=== PATIENT | male | born 1950 | race Hispanic/Latino ===

== ENCOUNTER 2020-09-25 08:03 | Day surgery (SDC) | payer MEDICARE ==
[2020-09-22 10:15] LABS: BASOPHILS % (AUTO) 0.5 % (0.0-5.0); EOSINOPHILS % (AUTO) 2.1 % (0.0-8.0); HEMATOCRIT 39.2 % (42-54); LYMPHOCYTES % (AUTO) 23.5 % (21.0-51.0); MEAN CORPUSCULAR HEMOGLOBIN 29.2 pg (27.0-33.0); MEAN CORPUSCULAR HGB CONC 32.9 g/dL (32.0-36.0); MEAN CORPUSCULAR VOLUME 88.7 fL (79-99); MONOCYTES % (AUTO) 8.6 % (3.0-13.0); NEUTROPHILS % (AUTO) 64.8 % (40.0-77.0); PLATELET COUNT (AUTO) 245 K/uL (130-400); RED BLOOD CELL COUNT(AUTO) 4.42 MIL/uL (4.50-6.20); RED CELL DISTRIBUTION WIDTH 13.3 % (11.0-15.5)
[2020-09-22 10:16] LABS: APPEARANCE,URINE Clear (CLEAR); BILIRUBIN,URINE Negative (NEGATIVE); COLOR,URINE Yellow (YELLOW); GLUCOSE, URINE (UA) Negative (NEGATIVE); KETONES,URINE Negative (NEGATIVE); LEUKOCYTE ESTERASE ,URINE Negative (NEGATIVE); NITRATE,URINE Negative (NEGATIVE); OCCULT BLOOD,URINE Negative (NEGATIVE); PROTEIN,URINE Negative (NEGATIVE)
[2020-09-22 10:22] LABS: CREATININE 1.1 mg/dL (0.5-1.5); POTASSIUM 4.3 mmol/L (3.5-5.1)
[2020-09-22 10:24] LABS: INR 1.01 (0.85-1.15); PARTIAL THROMBOPLASTIN TIME 27.5 SEC (26.3-35.5); PROTHROMBIN TIME 10.9 SEC (9.6-11.6)
[2020-09-22 16:52] VITALS: BP 147/84
[~2020-09-25] VITALS: Ht 160 cm; Wt 86.0 kg
[2020-09-25] VITALS (10 sets, daily range): BP systolic 119–148; BP diastolic 65–86
[~2020-09-25 08:03] MED LIST: AMLO-257 PO; ATOR40TA71 PO; CLOP75TA14 PO; FLUT16H NASAL; IPRA3S NASAL; LOSA50TA64 PO; OMEP40CA13 PO
[2020-09-25] MEDS ORDERED: SODIUM CHLORIDE 0.9% 1000ML 1,000 ML IV ONE (09:58)
[2020-09-25] MEDS ORDERED: LIDOCAINE HCL 2% 20ML ONE (11:10)
[2020-09-25] MEDS ORDERED: NITROGLYCERIN 2 MG/VIAL VIAL IV ONE (11:10)
[2020-09-25] MEDS ORDERED: IOHEXOL-350 75 ML VIAL IV ONE (11:10)
[2020-09-25] MEDS ORDERED: HEPARIN SODIUM 1000UNIT/ML 10ML VIAL ONE (11:10)
[2020-09-25] MEDS ORDERED: IOHEXOL-350 50ML VIAL IV ONE (11:15)
[2020-09-25] MEDS ORDERED: MIDAZOLAM HCL 1 MG/ML 2ML VIAL ONE (11:32)
[2020-09-25] MEDS ORDERED: NICARDIPINE HCL 25 MG/10 ML ML IV ONE (11:32)
[2020-09-25] MEDS ORDERED: FENTANYL CITRATE PF 50 MCG/1 ML 2ML VIAL ONE (11:33)
[2020-09-25] MEDS ORDERED: SODIUM BICARB 50MEQ 50ML VIAL 50 ML ONE (11:51)
--- NOTE | 2020-09-25 13:45 | NUR ---
TR BAND IN PLACE TO RIGHT WRIST. NO BLEEDING, NO HEMATOMA NOTED. RADIAL PULSE STRONG. REMOVED 2CC OF AIR FROM TR BAND. NO BLEEDING NOTED, PT TOLERATED WELL .
--- NOTE | 2020-09-25 15:30 | NUR ---
TR BAND REMOVED FROM PATIENT'S WRIST. NO BLEEDING, NO HEMATOMA NOTED. STERILE DRESSING APPLIED AND SECURED WITH TEGADERM TAPE. PATIENT TOLERATED WELL. RADIAL PULSE STRONG.
--- NOTE | 2020-09-25 16:00 | NUR ---
HANDOFF REPORT GIVEN TO MARIA C ROTH RN USING SBAR AT BEDSIDE. DRESSING TO RIGHT WRIST DRY/INTACT. NO BLEEDING NO HEMATOMA NOTED. RADIAL PULSES STRONG.
== END 2020-09-25 16:30 | disposition home or self-care (01) ==
LOC: DAH 08:03
PROVIDERS: ATTEND Internal Medicine Cardiovascular Disease
DX: I42.9 Cardiomyopathy, unspecified (principal); I47.2 Ventricular tachycardia; I10 Essential (primary) hypertension; G45.9 Transient cerebral ischemic attack, unspecified; E78.5 Hyperlipidemia, unspecified; E86.0 Dehydration; Z86.73 Personal history of transient ischemic attack (TIA), and cerebral infarction without residual deficits; Z79.01 Long term (current) use of anticoagulants; Z79.899 Other long term (current) drug therapy
CPT/HCPCS: 36415; 71045; 80048; 81003; 85025; 85610; 85730; 93005; 93458; 96360; 96361; A4215; A4216; A4221; A4222; A4223 ×3; A4606; A4663; C1769 ×2; C1894 ×2; J1644 ×2; J2250; J3010; J3490 ×4; J7030; Q9967 ×2; 99156; 99157

== ENCOUNTER 2020-11-17 23:25 | Emergency (ER) | payer MEDICARE ==
[2020-11-18 02:38] LABS: APPEARANCE,URINE Clear (CLEAR); BILIRUBIN,URINE Negative (NEGATIVE); COLOR,URINE Yellow (YELLOW); GLUCOSE, URINE (UA) Negative (NEGATIVE); KETONES,URINE Negative (NEGATIVE); LEUKOCYTE ESTERASE ,URINE Negative (NEGATIVE); NITRATE,URINE Negative (NEGATIVE); OCCULT BLOOD,URINE Negative (NEGATIVE); PROTEIN,URINE Negative (NEGATIVE); UROBILINOGEN,URINE 0.2 mg/dL (0.2-1.0)
[2020-11-18] MEDS ORDERED: BENZOCAINE/MENTH/CETYLPYRD CL 1 EACH LOZENGE MM ONE (03:29)
[2020-11-18 03:30] LABS: BASOPHILS % (AUTO) 0.4 % (0.0-5.0); EOSINOPHILS % (AUTO) 0.8 % (0.0-8.0); MEAN CORPUSCULAR HEMOGLOBIN 29.1 pg (27.0-33.0); MEAN CORPUSCULAR HGB CONC 34.2 g/dL (32.0-36.0); MEAN CORPUSCULAR VOLUME 85.2 fL (79-99); MONOCYTES % (AUTO) 6.6 % (3.0-13.0); PLATELET COUNT (AUTO) 237 K/uL (130-400); RED BLOOD CELL COUNT(AUTO) 4.46 MIL/uL (4.50-6.20); RED CELL DISTRIBUTION WIDTH 13.5 % (11.0-15.5); WHITE BLOOD COUNT (AUTO) 8.5 K/uL (4.8-10.8)
[2020-11-18 03:43] LABS: CREATININE 1.1 mg/dL (0.5-1.5); POTASSIUM 3.7 mmol/L (3.5-5.1)
[2020-11-18 03:48] LABS: ALBUMIN 3.8 g/dL (3.5-5.0); BILIRUBIN,TOTAL 0.6 mg/dL (0.2-1.0); TOTAL PROTEIN, SERUM 7.5 g/dL (6.0-8.3)
== END 2020-11-18 04:51 | disposition home or self-care (01) ==
LOC: EDH 23:25
DX: R68.2 Dry mouth, unspecified (principal); Z86.73 Personal history of transient ischemic attack (TIA), and cerebral infarction without residual deficits
CPT/HCPCS: 36415; 80053; 81003; 85025

== ENCOUNTER 2021-03-01 17:18 | Emergency (ER) | payer MEDICARE | END 2021-03-01 19:29 | disposition home or self-care (01) | LOC: EDH 17:18 | DX: R00.2 Palpitations (principal); I48.91 Unspecified atrial fibrillation; I10 Essential (primary) hypertension; E78.00 Pure hypercholesterolemia, unspecified | CPT/HCPCS: 93005 ==